=== PATIENT | female | born 1995 | race Caucasian/White ===

== ENCOUNTER 2017-08-26 16:55 | Emergency (ER) | payer OTHER, MEDICAID ==
[2017-08-26 19:19] LABS: ADD UMIC YES; UR ASCORBIC ACID 40 mg/dL (NEGATIVE); UR BILIRUBIN (Dip) NEGATIVE (NEGATIVE); UR BLOOD (Dip) NEGATIVE (NEGATIVE); UR CLARITY CLEAR (CLEAR); UR COLOR YELLOW (YELLOW); UR GLUCOSE (Dip) NEGATIVE (NEGATIVE); UR KETONES (Dip) 2+ mg/dL (NEGATIVE); UR LEUKOCYTE ESTERASE (Dip) 1+ Leu/ul (NEGATIVE); UR MUCUS MODERATE /HPF (NONE SEEN); UR NITRITE (Dip) NEGATIVE (NEGATIVE); UR RBC 1 /HPF (0-5); UR SPECIFIC GRAVITY (Dip) 1.021 (1.003-1.030); UR SQUAMOUS EPITHELIAL CELL FEW /HPF (FEW); UR TOTAL PROTEIN (Dip) NEGATIVE (NEGATIVE); UR UROBILINOGEN (Dip) NEGATIVE (NEGATIVE); UR WBC 4 /HPF (0-5)
[2017-08-26 19:43] LABS: ADD MAN DIFF? NO
[2017-08-26 19:46] LABS: WHITE BLOOD COUNT 8.7 10^3/ul (4.8-10.8)
[2017-08-26 19:46] LABS: BASOPHILS % 0.3 % (0.0-2.0); EOSINOPHILS % 0.1 % (0.0-7.0); HEMATOCRIT 35.2 % (37.0-47.0); HEMOGLOBIN 11.6 g/dl (12.0-16.0); LYMPHOCYTES # 0.9 10^3/ul (0.8-2.9); LYMPHOCYTES % 10.5 % (18.0-55.0); MEAN CORPUSCULAR HEMOGLOBIN 29.1 pg (29.0-33.0); MEAN CORPUSCULAR VOLUME 88.4 fl (72.0-104.0); MEAN PLATELET VOLUME 11.1 fl (7.4-10.4); MONOCYTE # 0.1 10^3/ul (0.3-0.9); MONOCYTES % 1.6 % (0.0-13.0); NEUTROPHIL # 7.5 10^3/ul (1.6-7.5); NEUTROPHILS % 87.3 % (30.0-74.0); PLATELET COUNT 284 10^3/UL (140-415); RED BLOOD COUNT 3.98 10^6/ul (4.20-5.40); RED CELL DISTRIBUTION WIDTH 14.2 % (11.5-14.5)
[2017-08-26 20:03] LABS: ALANINE AMINOTRANSFERASE 25 IU/L (13-69); ALBUMIN/GLOBULIN RATIO 1.11; ALKALINE PHOSPHATASE 63 IU/L (42-121); ANION GAP 16 (8-16); ASPARTATE AMINO TRANSFERASE 20 IU/L (15-46); BILIRUBIN,INDIRECT 0.3 mg/dl (0-1.1); BILIRUBIN,TOTAL 0.3 mg/dl (0.2-1.3); BLOOD UREA NITROGEN 4 mg/dl (7-20); CALCIUM 8.9 mg/dl (8.4-10.2); CARBON DIOXIDE 21 mmol/L (21-31); CHLORIDE 106 mmol/L (97-110); CREATININE 0.48 mg/dl (0.44-1.00); GLUCOSE 90 mg/dl (70-220); LIPASE 61 U/L (23-300); POTASSIUM 3.7 mmol/L (3.5-5.1); SODIUM 139 mmol/L (135-144); TOTAL PROTEIN 7.6 g/dl (6.1-8.1)
== END 2017-08-26 20:22 | disposition home or self-care (01) ==
LOC: FTE 20:22
DX: O26.892 Other specified pregnancy related conditions, second trimester (principal); R10.11 Right upper quadrant pain; R10.2 Pelvic and perineal pain; Z3A.18 18 weeks gestation of pregnancy
CPT/HCPCS: 36415; 76705; 76805; 80053; 81001; 83690; 85025; 99285-25

== ENCOUNTER 2018-01-14 10:55 | Outpatient (CLI) | payer OTHER ==
[2018-01-14] MEDS: LACTATED RINGER'S 1,000 ML IV (13:00)
[2018-01-14 15:43] LABS: RUPTURE FETAL MEMBRANES NEGATIVE (NEGATIVE)
== END 2018-01-14 15:55 | disposition home or self-care (01) ==
LOC: OBT 10:55 → L-D 10:55 → OBT 15:55
DX: O36.8130 Decreased fetal movements, third trimester, not applicable or unspecified (principal); Z3A.37 37 weeks gestation of pregnancy
CPT/HCPCS: 36415; 76815; 76818; 84112

== ENCOUNTER 2018-01-16 10:25 | Outpatient (CLI) | payer OTHER | END 2018-01-16 13:55 | disposition home or self-care (01) | LOC: OBT 10:25 → L-D 10:45 → OBT 13:55 | DX: O36.8130 Decreased fetal movements, third trimester, not applicable or unspecified (principal); Z3A.38 38 weeks gestation of pregnancy | CPT/HCPCS: 76818 ==

== ENCOUNTER 2018-01-24 20:09 | Inpatient (IN) | payer OTHER ==
[2018-01-24 22:36] LABS: RUPTURE FETAL MEMBRANES POSITIVE (NEGATIVE)
[2018-01-25] MEDS ORDERED: LACTATED RINGER'S 1,000 ML IV ×2 (00:08→03:53)
[2018-01-25] MEDS ORDERED: CARBOPROST 250 MCG INJ IM (00:30)
[2018-01-25] MEDS ORDERED: LIDOCAINE 1% (MPF) 30 ML INJ INJ (00:30)
[2018-01-25] MEDS ORDERED: MISOPROSTOL 200 MCG TAB PR (00:30)
[2018-01-25] MEDS ORDERED: OXYTOCIN 30 UNITS/LR 500 ML IV ×2 (00:30)
[2018-01-25] MEDS ORDERED: METHYLERGONOVINE 0.2 MG INJ IM (00:30)
[2018-01-25] MEDS: LACTATED RINGER'S 1,000 ML IV ×4 (00:45→20:47)
[2018-01-25 02:57] LABS: ADD MAN DIFF? NO
[2018-01-25 03:00] LABS: WHITE BLOOD COUNT 7.3 10^3/ul (4.8-10.8)
[2018-01-25 03:00] LABS: ABNORMAL IP MESSAGE 1; BASOPHILS % 0.5 % (0.0-2.0); EOSINOPHILS # 0.1 10^3/ul (0.0-0.5); EOSINOPHILS % 0.7 % (0.0-7.0); HEMATOCRIT 32.2 % (37.0-47.0); HEMOGLOBIN 10.6 g/dl (12.0-16.0); LYMPHOCYTES # 2.3 10^3/ul (0.8-2.9); LYMPHOCYTES % 31.5 % (15.0-51.0); MEAN CORPUSCULAR HGB CONC 32.9 g/dl (32.0-37.0); MEAN CORPUSCULAR VOLUME 88.2 fl (82.0-101.0); MEAN PLATELET VOLUME 13.3 fl (7.4-10.4); MONOCYTE # 0.4 10^3/ul (0.3-0.9); MONOCYTES % 4.8 % (0.0-11.0); NEUTROPHIL # 4.5 10^3/ul (1.6-7.5); NEUTROPHILS % 62.1 % (39.0-77.0); PLATELET COUNT 182 10^3/UL (140-415); RED BLOOD COUNT 3.65 10^6/ul (4.20-5.40); RED CELL DISTRIBUTION WIDTH 13.9 % (11.5-14.5)
[2018-01-25 03:01] LABS: POSITIVE DIFF @See below
[2018-01-25 03:16] LABS: INR 1.17; PROTIME 15.1 Sec (11.9-14.9); PT RATIO 1.2
[2018-01-25 04:12] LABS: HEPATITIS B SURFACE ANTIGEN NEGATIVE (NEGATIVE)
[2018-01-25] MEDS: AMPICILLIN 1 GM/NS (PMX) 50 ML IV (05:00)
[2018-01-25] MEDS: AMPICILLIN 2 GM/NS (PMX) 100 ML IV (05:08)
[2018-01-25] MEDS: OXYTOCIN 30 UNITS/LR 500 ML IV (05:14)
[2018-01-25] MEDS: BUTORPHANOL 2 MG INJ IV ×2 (16:15→20:49)
[2018-01-25 20:30] LABS: RAPID PLASMA REAGIN NONREACTIVE (NR)
[2018-01-25] MEDS ORDERED: FENTAnyl 2MCG/ML-ROPIV 0.2% 100 ML (21:24)
[2018-01-26] MEDS: LACTATED RINGER'S 1,000 ML IV ×2 (00:32→10:23)
[2018-01-26] MEDS ORDERED: AMPICILLIN 2 GM/NS (PMX) 100 ML (02:37)
[2018-01-26] MEDS: AMPICILLIN 2 GM/NS (PMX) 100 ML IV (02:55)
[2018-01-26] MEDS ORDERED: ACETAMINOPHEN 500 MG TAB (05:07)
[2018-01-26] MEDS: ACETAMINOPHEN 500 MG TAB PO (05:14)
[2018-01-26] MEDS ORDERED: FENTAnyl 2MCG/ML-ROPIV 0.2% 100 ML (06:29)
[2018-01-26] MEDS: FENTAnyl 2MCG/ML-ROPIV 0.2% 100 ML BAG EPI (06:42)
[2018-01-26] MEDS ORDERED: ONDANSETRON 4 MG INJ IV (07:00)
[2018-01-26] MEDS ORDERED: NALOXONE (0.4 MG/ML) INJ IV (07:00)
[2018-01-26] MEDS: AMPICILLIN 1 GM/NS (PMX) 50 ML IV ×2 (07:08→11:44)
[2018-01-26] MEDS: OXYTOCIN 30 UNITS/LR 500 ML IV ×2 (13:32→17:01)
[2018-01-26] MEDS: IBUPROFEN 600 MG TAB PO (13:46)
[2018-01-26] MEDS: LACTATED RINGER'S 1,000 ML IV* (16:48)
[2018-01-26] MEDS ORDERED: OXYTOCIN 30 UNITS/LR 500 ML IV (17:00)
[2018-01-26] MEDS ORDERED: METHYLERGONOVINE 0.2 MG INJ IM (17:00)
[2018-01-26] MEDS ORDERED: CARBOPROST 250 MCG INJ IM (17:00)
[2018-01-26] MEDS ORDERED: DIPHENHYDRAMINE 25 MG CAP PO (17:00)
[2018-01-26] MEDS ORDERED: MISOPROSTOL 200 MCG TAB PR (17:00)
[2018-01-26] MEDS ORDERED: HYDROCODONE/APAP (5/325) TAB PO (17:00)
[2018-01-26] MEDS ORDERED: ZOLPIDEM 5 MG TAB PO (17:00)
[2018-01-26] MEDS ORDERED: ACETAMINOPHEN 325 MG TAB PO (17:00)
[2018-01-26] MEDS: IBUPROFEN 800 MG TAB PO (18:00)
[2018-01-27] MEDS: IBUPROFEN 800 MG TAB PO ×4 (00:19→17:28)
[2018-01-27] MEDS: BENZOCAINE 20% 56 ML SPRAY TOP (00:20)
[2018-01-27] MEDS: LANOLIN 7 GM TUBE TOP (00:20)
[2018-01-27] MEDS: WITCH HAZEL/GLYCERIN PAD PR (00:20)
[2018-01-27] MEDS: LACTATED RINGER'S 1,000 ML IV* ×2 (00:48→06:58)
[2018-01-27 08:32] LABS: ADD MAN DIFF? NO
[2018-01-27 08:38] LABS: WHITE BLOOD COUNT 16.6 10^3/ul (4.8-10.8)
[2018-01-27 08:38] LABS: ABNORMAL IP MESSAGE 1; BASOPHIL # 0.1 10^3/ul (0.0-0.1); BASOPHILS % 0.3 % (0.0-2.0); EOSINOPHILS # 0.2 10^3/ul (0.0-0.5); EOSINOPHILS % 1.3 % (0.0-7.0); HEMATOCRIT 28.9 % (37.0-47.0); HEMOGLOBIN 9.5 g/dl (12.0-16.0); LYMPHOCYTES # 2.6 10^3/ul (0.8-2.9); LYMPHOCYTES % 15.9 % (15.0-51.0); MEAN CORPUSCULAR HEMOGLOBIN 29.1 pg (29.0-33.0); MEAN CORPUSCULAR HGB CONC 32.9 g/dl (32.0-37.0); MEAN CORPUSCULAR VOLUME 88.4 fl (82.0-101.0); MEAN PLATELET VOLUME 13.4 fl (7.4-10.4); MONOCYTE # 0.7 10^3/ul (0.3-0.9); NEUTROPHIL # 12.9 10^3/ul (1.6-7.5); NEUTROPHILS % 77.9 % (39.0-77.0); PLATELET COUNT 185 10^3/UL (140-415); RED BLOOD COUNT 3.27 10^6/ul (4.20-5.40); RED CELL DISTRIBUTION WIDTH 14.2 % (11.5-14.5)
[2018-01-27 08:44] LABS: POSITIVE DIFF @See below
[2018-01-27] MEDS: SENNA/DOCUSATE NA (8.6MG/50MG) TAB PO (08:54)
[2018-01-27] MEDS: MEASLES,MUMPS,RUBELLA VACCINE INJ SC* (17:07)
[2018-01-27] MEDS: VARICELLA VACCINE LIVE/PF 1,350 UNIT/0.5 ML ML SC* (17:07)
[2018-01-27] MEDS: DIPHTH/TET/ACEL PERTUSS (ADULT) 0.5 ML VIAL IM* (17:29)
[2018-01-28] MEDS: IBUPROFEN 800 MG TAB PO ×4 (05:48→17:03)
[2018-01-28] MEDS ORDERED: DIPHTH/TET/ACEL PERTUSS (ADULT) 0.5 ML VIAL IM* (09:00)
[2018-01-28] MEDS: SENNA/DOCUSATE NA (8.6MG/50MG) TAB PO (09:32)
[2018-01-28] MEDS: MAGNESIUM HYDROXIDE 30ML CUP PO (09:32)
[2018-01-28] MEDS: INFLUENZA VIRUS VACCINE 0.5 ML (DISPENSING) IM* (16:59)
== END 2018-01-28 18:30 | disposition home or self-care (01) | DRG 807 ==
LOC: OBT 20:09 → PP1 01-26 21:54 → L-D 20:09
PROVIDERS: Obstetrics & Gynecology
PROC: 10E0XZZ Delivery of Products of Conception, External Approach (ICD-10-PCS; principal; 2018-01-26)
PROC: 0HQ9XZZ Repair Perineum Skin, External Approach (ICD-10-PCS; 2018-01-26)
DX: O70.0 First degree perineal laceration during delivery (principal); Z37.0 Single live birth; Z3A.39 39 weeks gestation of pregnancy
CPT/HCPCS: 36415; 62319; 76818; 84112; 85025; 85610; 85730; 86592; 86850; 86900; 86901; 87340; 90686; 90715; 90716; 99464